=== PATIENT | female | born 1945 | race Caucasian/White ===

== ENCOUNTER → 2016-10-09 | Outpatient (CLI) | payer MEDICARE, BC | LOC: KOH-I 13:15 | DX: M54.14 Radiculopathy, thoracic region (principal); M47.894 Other spondylosis, thoracic region | CPT/HCPCS: 72070 ==

== ENCOUNTER 2020-05-11 10:02 | Emergency (ER) | payer MEDICARE, BC ==
[~2020-05-11 10:02] MED LIST: BACTROBAN OINT22 GM EXT
[2020-05-11 11:32] LABS: HEMOGLOBIN 14.4 gm/dl (12.3-15.3); RED BLOOD COUNT 4.69 M/UL (4.00-5.10); WHITE BLOOD COUNT 6.1 K/UL (4.5-11.0)
[2020-05-11 11:59] LABS: BUN/CREATININE RATIO 13 (0-10)
== END 2020-05-11 14:17 | disposition home or self-care (01) ==
LOC: ER1 10:02
PROVIDERS: Physician Assistant
DX: U07.1 COVID-19 (principal); Z88.1 Allergy status to other antibiotic agents
CPT/HCPCS: 80053; 85025; 99283; M0239

== ENCOUNTER → 2021-01-09 | Outpatient (CLI) | payer MEDICARE, BC | LOC: KOH-I 10:25 | DX: M25.512 Pain in left shoulder (principal) | CPT/HCPCS: 73030 ==

== ENCOUNTER 2021-06-01 11:50 | Emergency (ER) | payer MEDICARE, BC ==
[2021-06-01] MEDS ORDERED: CLARITIN10 MG PO (14:33)
== END 2021-06-01 14:55 | disposition home or self-care (01) ==
LOC: ER1 11:50
DX: J06.9 Acute upper respiratory infection, unspecified (principal); R23.2 Flushing; E52 Niacin deficiency [pellagra]; Z90.49 Acquired absence of other specified parts of digestive tract; Z20.822 Contact with and (suspected) exposure to COVID-19
CPT/HCPCS: 0240U; 99283

== ENCOUNTER → 2021-07-09 | Outpatient (CLI) | payer MEDICARE, BC ==
[~2021-07-09] MED LIST changes: +CLARITIN10 MG PO
== END ==
LOC: KOH-I 12:57
DX: M25.551 Pain in right hip (principal)
CPT/HCPCS: 73502

== ENCOUNTER → 2021-09-12 | Day surgery (SDC) | payer MEDICARE, BC ==
[~2021-09-12] MED LIST changes: +ESTRADIOL42.5 GM VG; +LUMIGAN 0.01%2.5 ML EYEBOTH; +PROTONIX 40 MG40 M1 PO
== END | disposition home or self-care (01) ==
LOC: OR 06:48
DX: K21.9 Gastro-esophageal reflux disease without esophagitis (principal); K29.80 Duodenitis without bleeding; K31.9 Disease of stomach and duodenum, unspecified; E78.5 Hyperlipidemia, unspecified; I10 Essential (primary) hypertension; Z87.891 Personal history of nicotine dependence; Z88.1 Allergy status to other antibiotic agents; Z79.899 Other long term (current) drug therapy
CPT/HCPCS: J2001; J2704; J7120

== ENCOUNTER → 2021-10-16 | Outpatient (CLI) | payer MEDICARE, BC | LOC: CT 07:18 | DX: R10.10 Upper abdominal pain, unspecified (principal) | CPT/HCPCS: 36415; 82565; 84520; Q9967 ==

== ENCOUNTER → 2021-12-12 | Outpatient (CLI) | payer MEDICARE, BC | LOC: LAB 09:34 | DX: R39.89 Other symptoms and signs involving the genitourinary system (principal) | CPT/HCPCS: 81001 ==